=== PATIENT | male | born 1965 | race Caucasian/White ===

== ENCOUNTER 2019-09-28 12:39 | Emergency (ER) | payer SELFPAY ==
--- NOTE | 2019-09-28 13:50 | ER Document Report ---
Entered by CHICO PELAEZ SCRIBE 09/28/19 1318 Acting as scribe for:JAN DE LEON MD ED General - General Stated Complaint: TROUBLE BREATHING Time Seen by Provider: 09/28/19 13:08 Mode of Arrival: Medic Information source: Patient Notes: This 54 year old homeless diabetic male patient brought in by EMS presents to the ED today with complaints of dyspnea that occurred prior to arrival. Patient states that he is an alcoholic and that he drank two 24 oz cans of beer to "calm my nerves" at 7:00 AM. He states he drank the beer because he did not have his Zyprexa. Patient states that he got hungry, so he went to [facility] where he felt nauseous and had difficulty breathing, so EMS was called. Patient notes that EMS checked his blood sugar and it was approximately 472. Patient states that he lives in a homeless alf in [place] and he was here in [place] for detox and to fill his prescriptions (ran out x2 weeks ago) at the local [facility]. Patient notes that he was sent to [place] for detox because he was seen at the clinic in [place] x7 times already. Patient states that he was unable to refill his prescription in [place] because he was "tied up going to clinic to clinic". Patient states that he does not have a ride back to [place] because he left the facility this morning. The patient does not have a medication list. He states he takes gabapentin 800 3 times daily, metoprolol 50 twice daily, lisinopril 20 daily. He states he takes Zyprexa 10 mg twice daily. He also states he is on sliding scale regular insulin, but does not have a glucometer so he manages his insulin dosing based on taking a double dose of his prescribed glipizide. Very little else that patient states makes any more sense than this. Past Medical History - General Information source: Patient - Social History Smoking Status: Never Smoker Cigarette use (# per day): No Chew tobacco use (# tins/day): No Smoking Education Provided: No Frequency of alcohol use: Heavy Occupation: Unemployed Lives with: Homeless Family History: Reviewed & Not Pertinent Patient has suicidal ideation: No Patient has homicidal ideation: No - Past Medical History Cardiac Medical History: Reports: Hx Hypertension Endocrine Medical History: Reports: Hx Diabetes Mellitus Type 2 Psychiatric Medical History: Reports: Hx Schizophrenia Past Surgical History: Reports: None Review of Systems - Review of Systems Constitutional: No symptoms reported EENT: No symptoms reported Cardiovascular: See HPI, Dyspnea Respiratory: No symptoms reported Gastrointestinal: See HPI, Nausea. denies: Vomiting Genitourinary: No symptoms reported Male Genitourinary: No symptoms reported Musculoskeletal: No symptoms reported Skin: No symptoms reported Hematologic/Lymphatic: No symptoms reported Neurological/Psychological: No symptoms reported -: Yes All other systems reviewed and negative Physical Exam - Vital signs Interpretation: Normal - General General appearance: Alert, Other - Demanding and argumentative with registration, nurse, and physician. No ketone odor detected. In distress: None - HEENT Head: Normocephalic, Atraumatic Eyes: Normal, Other - Patient does squint a lot like he may have some visual disturbance, but he is too uncooperative to answer questions about his vision. Pupils: PERRL - Respiratory Respiratory status: No respiratory distress Chest status: Nontender Breath sounds: Normal Chest palpation: Normal - Cardiovascular Rhythm: Regular Heart sounds: Normal auscultation Murmur: No - Abdominal Inspection: Obese Distension: No distension Bowel sounds: Normal Tenderness: Nontender Organomegaly: No organomegaly - Back Back: Normal, Nontender - Extremities General upper extremity: Normal inspection General lower extremity: Normal inspection - Neurological Neuro grossly intact: Yes - Psychological Associated symptoms: Other - Argumentative, deceptive, demanding, somewhat dishonest. - Skin Skin Temperature: Warm Skin Moisture: Dry Skin Color: Normal Course - Re-evaluation Re-evalutation: 09/28/19 14:18 The patient demanded to give him various medications, but will not allow me the opportunity to confirm what medications he is really supposed to be taking. I did place several orders in the computer in order to evaluate the patient's presenting complaints, but the nurse came to me and told me he wanted his IV out and he was leaving. He is oriented, he does understand what he is doing. He has been able to manipulate the system in [place] to go to various detox facilities, and then get placed at the facility here in [place]. It appears that he probably left against advice this morning and went out and drank beer, and then went to [facility] where 911 was called. He states he has been out of his medication for over 2 weeks and blames the various facilities that he has gone from 1 to the other is the reason why he could never go get his medication filled. It appears that he is capable of handling himself and understands what he is doing. I do not see a valid reason to hold him against his will, as he does repeatedly talk about knowing what his rights are and I believe in this instance he is correct. Discharge - Discharge Clinical Impression: Elevated blood sugar, Noncompliance with medication regimen, History of alcohol abuse, Homeless single person, Personal history of schizophrenia Disposition: AGAINST MEDICAL ADVICE Scribe Attestation: 09/28/19 14:22 I personally performed the services described in the documentation, reviewed and edited the documentation which was dictated to the scribe in my presence, and it accurately records my words and actions. I personally performed the services described in the documentation, reviewed and edited the documentation which was dictated to the scribe in my presence, and it accurately records my words and actions.
== END 2019-09-28 13:40 | disposition left against medical advice (07) ==
LOC: ER 12:39
DX: E11.65 Type 2 diabetes mellitus with hyperglycemia (principal); R11.0 Nausea; R06.00 Dyspnea, unspecified; I10 Essential (primary) hypertension; Z86.59 Personal history of other mental and behavioral disorders; Z59.0 Homelessness; Z91.14 Patient's other noncompliance with medication regimen; Z53.20 Procedure and treatment not carried out because of patient's decision for unspecified reasons
CPT/HCPCS: 99284

== ENCOUNTER 2019-09-29 00:43 | Emergency (ER) | payer SELFPAY ==
[2019-09-29 00:52] VITALS: BP 181/114
== END 2019-09-29 03:50 | disposition left against medical advice (07) ==
LOC: ER 00:43
DX: Z53.21 Procedure and treatment not carried out due to patient leaving prior to being seen by health care provider (principal); I10 Essential (primary) hypertension
CPT/HCPCS: 82962

== ENCOUNTER 2019-09-29 13:17 | Emergency (ER) | payer SELFPAY ==
[2019-09-29 13:27] VITALS: BP 183/108
--- NOTE | 2019-09-29 14:02 | ER Document Report ---
ED General - General Chief Complaint: Alcohol Withdrawl Stated Complaint: ALCOHOL WITHDRAWAL Time Seen by Provider: 09/29/19 13:50 Notes: Patient is a 54-year-old alcoholic male who presents to the emergency department for possible alcohol withdrawals. Patient states that he fell asleep behind [employer], the restaurant. He states that he feels like he is going through alcohol withdrawals and wants to go home. He was brought in because somebody had called 911. He is holding an emesis bag with dark brown vomit in it, but denies any vomiting, pain, or any other symptoms. He is stating that he wants to leave the emergency department and he does not want any help. He is answering questions appropriately. Patient is homeless. TRAVEL OUTSIDE OF THE [place] IN LAST 30 DAYS: No - Related Data Allergies/Adverse Reactions: haloperidol [From Haldol] Adverse Reaction (Verified 09/29/19 01:02) Past Medical History - General Information source: Patient - Social History Smoking Status: Unknown if Ever Smoked Family History: Reviewed & Not Pertinent - Past Medical History Cardiac Medical History: Reports: Hx Hypertension Endocrine Medical History: Reports: Hx Diabetes Mellitus Type 1, Hx Diabetes Mellitus Type 2 Psychiatric Medical History: Reports: Hx Schizophrenia Review of Systems - Review of Systems Notes: REVIEW OF SYSTEMS: CONSTITUTIONAL : Denies recent illness. Denies recent unintentional weight loss. Denies fever, chills, or sweats. EENT: Denies eye, ear, throat, or mouth pain, discharge, or symptoms. Denies nasal or sinus congestion. CARDIOVASCULAR: Denies chest pain. RESPIRATORY: Denies shortness of breath, cough, congestion, difficulty breathing, or wheezing. GASTROINTESTINAL: Denies nausea, vomiting, and diarrhea. Denies abdominal pain. Denies constipation. GENITOURINARY: Denies difficulty urinating, burning, blood in urine, urgency or frequency. MUSCULOSKELETAL: Denies neck and back pain. Denies joint pain or swelling. SKIN: Denies rash, itchiness, or lesions HEMATOLOGIC : Denies easy bruising or bleeding. LYMPHATIC: Denies swollen, painful, enlarged glands. NEUROLOGICAL: Denies no numbness or tingling denies weakness. Denies headache. Denies altered mental status. Denies alteration in speech. PSYCHIATRIC: Denies stress, anxiety, alteration in sleep patterns, or depression. See HPI. All other systems reviewed and negative. Physical Exam - Vital signs Vitals: Temp Pulse Resp BP Pulse Ox 97.7 F 114 H 18 183/108 H 94 09/29/19 13:25 09/29/19 13:25 09/29/19 13:25 09/29/19 13:25 09/29/19 13:25 - Notes Notes: PHYSICAL EXAMINATION: GENERAL: Appears chronically ill, no acute distress. HEAD: Normocephalic, atraumatic. EYES: PERRL, conjunctiva normal, all extraocular movements intact, sclera nonicteric ENT: Moist mucous membranes. NECK: Supple, no noticeable swelling, redness, rash. Normal range of motion. LUNGS: Equal breath sounds bilaterally and clear to auscultation. No wheezes rales or rhonchi. CARDIOVASCULAR: S1-S2, regular rate, regular rhythm. Radial pulses 2+, normal. Hypertensive. ABDOMEN: Normoactive bowel sounds. Soft, nontender, no guarding, no rebound tenderness, and no masses palpated. EXTREMITIES: Normal strength and range of motion, no pitting or edema. No cyanosis. NEUROLOGICAL: Moves all extremities upon command. Strength 5/5 in all extremities. PSYCH: Normal mood, normal affect. SKIN: Warm, dry. No rash, lesions, ulcerations noted. Normal skin turgor. Course - Re-evaluation Re-evalutation: 09/29/19 The patient has chosen to leave the facility against medical advice. The relevant issues have been reviewed and discussed with the patient and family at the bedside. At the time of this assessment there is no indication for involuntary commitment. The patient is alert, oriented, and able to express clearly their reasoning for not wanting to remain in the emergency department for further treatment. The patient is not clinically psychotic, intoxicated, and denies and suicidal ideation. Differential or suspected diagnoses based on medical screening exam: Alcohol withdrawal, GI bleed, pancreatitis. The patient is aware of the concerning diagnoses and acknowledges understanding of the reasons for the following recommendations: He is to return to the emergency department if he has worsening symptoms. The following recommendations/services were offered and refused: Labs, monitoring, help with alcohol withdrawal, rehabilitation. The following risks were explained: , permanent disability, loss of function, Clinical impression: Patient is competent to make decisions regarding the medical that is being offered. He will leave the emergency department. Follow- up precautions were given. Verbal discharge instructions were given to the patient. They verbalized understanding. They are stable for discharge. - Vital Signs Vital signs: Temp Pulse Resp BP Pulse Ox 97.7 F 114 H 18 183/108 H 94 09/29/19 13:25 09/29/19 13:25 09/29/19 13:25 09/29/19 13:25 09/29/19 13:25 Discharge - Discharge Clinical Impression: Noncompliance with medication regimen, History of alcohol abuse, Homeless single person Condition: Stable Disposition: AGAINST MEDICAL ADVICE Additional Instructions: You were seen today in the emergency department for high blood pressure and possible alcohol withdrawals. You are wishing to leave AGAINST MEDICAL ADVICE. There is a possibility you can have worsening symptoms, , or have your condition worsen. Please return to the emergency department immediately if you continue to have symptoms. I highly suggest that you do not continue drinking and get help, but she you are not wanting that at this time.
== END 2019-09-29 14:05 | disposition left against medical advice (07) ==
LOC: ER 13:17
DX: Z91.14 Patient's other noncompliance with medication regimen (principal); F10.239 Alcohol dependence with withdrawal, unspecified; Z59.0 Homelessness; I10 Essential (primary) hypertension; E11.9 Type 2 diabetes mellitus without complications
CPT/HCPCS: 99284

== ENCOUNTER 2019-09-30 01:28 | Emergency (ER) | payer SELFPAY ==
[2019-09-30] MEDS ORDERED: NORMAL SALINE 1000 ML 1,000 ML IV ONE (02:06)
[2019-09-30] MEDS ORDERED: LISINOPRIL 10 MG TABLET PO ONE (02:07)
[2019-09-30] MEDS ORDERED: METOPROLOL TARTRATE 50 MG TABLET PO ONE ×2 (02:07→08:28)
[2019-09-30] MEDS ORDERED: PROMETHAZINE HCL INJ 25 MG/1 ML VIAL IM ONE (02:07)
--- NOTE | 2019-09-30 02:09 | ER Document Report ---
ED Substance Abuse / Acc. OD - General Chief Complaint: Alcohol Withdrawl Stated Complaint: ETOH Time Seen by Provider: 09/30/19 01:58 Notes: Patient is a 54-year-old male that comes emergency department for chief complaint of alcohol dependence and concerned about withdrawal. He also states that he is out of his blood pressure medication including metoprolol 50 mg twice a day and lisinopril 20 mg daily. He is also a type II diabetic. He states he vomited twice earlier today, he states he got so drunk he passed out behind [employer]. He states that his last drink of alcohol was 5 hours ago but he also states that he will quickly develop withdrawal symptoms if he does not drink. He states that he is hoping to get back into detox. He states he has performed this in the past but with relapses and if he does not drink he withdraws. He denies recreational drugs, smoking, or any other daily medications. He denies SI or HI. He denies fall or head injury. He denies any pain at this time. TRAVEL OUTSIDE OF THE [place] IN LAST 30 DAYS: No - Related Data Allergies/Adverse Reactions: haloperidol [From Haldol] Adverse Reaction (Verified 09/30/19 02:37) Past Medical History - General Information source: Patient - Social History Smoking Status: Current Every Day Smoker Frequency of alcohol use: Heavy Drug Abuse: Cocaine Lives with: Alone Family History: Reviewed & Not Pertinent - Past Medical History Cardiac Medical History: Reports: Hx Hypertension Endocrine Medical History: Reports: Hx Diabetes Mellitus Type 2 Psychiatric Medical History: Reports: Hx Schizophrenia - Immunizations Hx Diphtheria, Pertussis, Tetanus Vaccination: Yes Review of Systems - Review of Systems Constitutional: No symptoms reported EENT: No symptoms reported Cardiovascular: No symptoms reported Respiratory: No symptoms reported Gastrointestinal: See HPI Genitourinary: No symptoms reported Male Genitourinary: No symptoms reported Musculoskeletal: No symptoms reported Skin: No symptoms reported Hematologic/Lymphatic: No symptoms reported Neurological/Psychological: See HPI Physical Exam - Vital signs Vitals: Pulse Ox 96 09/30/19 02:25 - Notes Notes: GENERAL: Alert, interacts well. Somewhat disheveled. No acute distress. Smells of alcohol but is not slurring his words HEAD: Normocephalic, atraumatic. EYES: Pupils equal, round, and reactive to light. Extraocular movements intact. ENT: Oral mucosa dry, tongue midline. Oropharynx unremarkable. Airway patent. LUNGS: Clear to auscultation bilaterally, no wheezes, rales, or rhonchi. No respiratory distress. HEART: Borderline tachycardic, normal rhythm. No murmur ABDOMEN: Soft, non-tender. Non-distended. Bowel sounds present in all 4 quadran ts. EXTREMITIES: Moves all 4 extremities spontaneously. No edema, normal radial and dorsalis pedis pulses bilaterally. No cyanosis. BACK: no cervical, thoracic, lumbar midline tenderness. No saddle anesthesia, normal distal neurovascular exam. Moves all extremities in full range of motion. NEUROLOGICAL: Alert and oriented x3. Normal speech. Cranial nerves II through XII grossly intact. PSYCH: Normal affect, normal mood. SKIN: Warm, dry, normal turgor. No rashes or lesions noted. Course - Re-evaluation Re-evalutation: Patient is cooperative, alert, denies SI or HI, states he just wants help detoxing. CBC nonspecific, chemistry unremarkable other than some hyperglycemia which is expected based on him not taking recent diabetes medications and having a history of type 2 diabetes. Bicarb 21, a few ketones in the urine, giving IV fluids. Drug screen shows multiple controlled substances despite patient denying this. Alcohol is actually not very elevated at 104. After blood pressure medications blood pressure improved, tachycardia resolved, on reevaluation patient is not tachycardic, tremulous, and he is cooperative. He has not had any vomiting here. Patient is medically cleared pending mental health team evaluation and potential placement for detox. Discussed with patient, he states appreciation and agreement. - Vital Signs Vital signs: Temp Pulse Resp BP Pulse Ox 97.8 F 19 147/94 H 96 09/30/19 02:26 09/30/19 06:01 09/30/19 06:01 09/30/19 06:01 - Laboratory Result Diagrams: 09/30/19 02:50 09/30/19 02:50 Laboratory results interpreted by me: 09/30/19 09/30/19 09/30/19 02:30 02:50 02:50 WBC 11.4 H RDW 15.4 H Carbon Dioxide 21 L Glucose 231 H Urine Protein 100 H Urine Glucose (UA) >=500 H Urine Ketones 20 H Salicylates 1.7 L Acetaminophen < 10 L - EKG Interpretation by Me Additional EKG results interpreted by me: EKG shows sinus tachycardia at a rate of 102, left anterior fascicular block, left axis deviation. No T wave inversions or ST segment changes in consecutive leads. QTC 469. Discharge - Discharge Clinical Impression: Substance abuse, Has run out of medications Alcohol dependence Qualifiers: Substance use status: unspecified alcohol-induced disorder Qualified Code(s): F10.29 - Alcohol dependence with unspecified alcohol-induced disorder Condition: Stable Disposition: PSYCH HOSP/UNIT
[2019-09-30 02:56] LABS: APPEARANCE,URINE CLEAR; BILIRUBIN,URINE NEGATIVE (NEGATIVE); COLOR,URINE STRAW; GLUCOSE, URINE >=500 mg/dL (NEGATIVE); KETONES,URINE 20 mg/dL (NEGATIVE); LEUKOCYTE ESTERASE,URINE NEGATIVE (NEGATIVE); NITRITE,URINE NEGATIVE (NEGATIVE); PROTEIN,URINE 100 mg/dL (NEGATIVE); URINE SPECIFIC GRAVITY 1.012; UROBILINOGEN,URINE NEGATIVE mg/dL (<2.0)
[2019-09-30 03:06] LABS: ABSOLUTE BASOPHILS # (AUTO) 0.1 10^3/uL (0.0-0.2); ABSOLUTE EOSINOPHILS # (AUTO) 0.1 10^3/uL (0.0-0.6); ABSOLUTE LYMPHOCYTES (AUTO) 3.2 10^3/uL (0.5-4.7); ABSOLUTE MONOCYTES (AUTO) 0.9 10^3/uL (0.1-1.4); ABSOLUTE NEUT (AUTO) 7.1 10^3/uL (1.7-8.2); BASOPHILS % (AUTO) 0.7 % (0-2); EOSINOPHILS % (AUTO) 0.9 % (0-6); HEMATOCRIT 45.3 % (37.9-51.0); HEMOGLOBIN 15.3 g/dL (13.5-17.0); MEAN CORPUSCULAR HEMOGLOBIN 30.4 pg (27.0-33.4); MEAN CORPUSCULAR HGB CONC 33.9 g/dL (32.0-36.0); MEAN CORPUSCULAR VOLUME 90 fl (80-97); MONOCYTES % (AUTO) 8.2 % (3-13); PLATELET COUNT 306 10^3/uL (150-450); RED BLOOD COUNT 5.05 10^6/uL (4.35-5.55); RED CELL DISTRIBUTION WIDTH 15.4 % (11.5-14.0); SEGMENTED NEUTROPHILS % (AUTO) 62.2 % (42-78); TOTAL CELLS COUNTED % (AUTO) 100 %; WHITE BLOOD COUNT 11.4 10^3/uL (4.0-10.5)
[2019-09-30 03:12] LABS: ALBUMIN 4.5 g/dL (3.5-5.0); ALCOHOL 104 mg/dL (NONE DETECTED); ALKALINE PHOSPHATASE 103 U/L (38-126); ANION GAP 17 (5-19); ASPARTATE AMINO TRANSFERASE 24 U/L (17-59); BILIRUBIN,DIRECT 0.3 mg/dL (0.0-0.4); BILIRUBIN,TOTAL 0.3 mg/dL (0.2-1.3); BLOOD UREA NITROGEN 11 mg/dL (7-20); CALCIUM 9.6 mg/dL (8.4-10.2); CARBON DIOXIDE 21 mmol/L (22-30); CHLORIDE 102 mmol/L (98-107); GLUCOSE 231 mg/dL (75-110); POTASSIUM 4.5 mmol/L (3.6-5.0); SALICYLATE 1.7 mg/dL (2.0-20.0)
[2019-09-30 03:15] LABS: URINE AMPHETAMINES SCREEN NEGATIVE; URINE MARIJUANA (THC) SCREEN NEGATIVE; URINE METHADONE SCREEN NEGATIVE
[2019-09-30 03:16] LABS: ACETAMINOPHEN < 10 ug/mL (10-30)
[2019-09-30 03:16] LABS: URINE BARBITURATES SCREEN UNCONFIRMED POSITIVE; URINE BENZODIAZEPINES SCREEN UNCONFIRMED POSITIVE; URINE COCAINE SCREEN UNCONFIRMED POSITIVE
[2019-09-30 03:18] LABS: URINE PHENCYCLIDINE SCREEN NEGATIVE
[2019-09-30] MEDS ORDERED: DIAZEPAM 5 MG TABLET PO ONE (07:36)
--- NOTE | 2019-09-30 08:14 | EKG REPORT ---
SEVERITY:- ABNORMAL ECG - SINUS TACHYCARDIA LEFT ANTERIOR FASCICULAR BLOCK BORDERLINE R WAVE PROGRESSION, ANTERIOR LEADS : Confirmed by: Jonn Haider MD 30-Sep-2019 08:13:48
--- NOTE | 2019-09-30 09:25 | PSYCHOLOGICAL NOTE ---
Psych Note - Psych Note Date seen by psych provider: 09/30/19 Time seen by psych provider: 07:50 Psych Note: Reason for consult: ETOH/Polysubstance Use Patient is a 54 year old male who presents to ED via EMS for concerns of ETOH withdrawal. Patient has an extensive history of ETOH abuse and polysubstance use. Patient apologized to clinician for current presentation and stated he "was partying with a new friend." Patient states that his ETOH and polysubstance use has "been an attempt to escape reality." Patient's urine drug screen is positive for barbiturates, benzos, ETOH 104, and cocaine. Patient is a experiencing homelessness. Patient was presented with the option to receive treatment at [facility]; patient agreed for referral to be sent. Patient is alert and oriented to person, place, time and circumstance. Mood is normal with congruent affect. Patient denies suicidal and homicidal ideations. Delusions are absent and behavior is congruent with an intact reality based presentation (i.e.: organized and linear through processes). There is no o bserved behavior that suggests patient is responding to internal stimuli. Patient denies current auditory and visual hallucinations. Eye contact is good. Conversational speech is within normal rate, tone, and prosody. Intellectual ability appears to be within average range. Attention and concentration are good. Insight, judgment and impulse control are currently poor. Medication recommendations per [facility] contracted psychiatrist Dr. Sintia HAQ is as follows: NONE Impression/Plan: Patient is cleared fro acute psyciatric services. Patient denies suicidal and homicidal ideations. There is no observed behavior that suggests patient is responding to internal stimuli. Patient denies current auditory and visual hallucinations. Patient has an extensive ETOH and polysubstance use. Clinician spoke with Brittani at [facility] who stated there is bed availability. Plan is for patient to voluntarily present to [facility] for treatment. Dr. Mckeon was consulted on the care and management of this patient; attending physician is in agreement with recommendations and disposition.
--- NOTE | 2019-09-30 09:51 | ER Document Report ---
Doctor's Note Notes: 09/30/19 09:50 Patient resting comfortably on stretcher. Patient is alert and oriented x4. Patient to be transported to [place] around 10 AM this morning. A staff member from [facility] to come to the emergency department and escort the patient. Patient verbalized understanding. Patient reports that he is hungry. Patient not sh owing any signs of withdrawal at this time. Will order the patient a meal tray. Patient was given his doses of blood pressure medication and is not due for another dose until 2 PM this afternoon.
[2019-09-30 10:22] VITALS: BP 148/107
== END 2019-09-30 10:23 | disposition home or self-care (01) ==
LOC: ER 01:28
DX: F10.29 Alcohol dependence with unspecified alcohol-induced disorder (principal); Y90.5 Blood alcohol level of 100-119 mg/100 ml; R11.10 Vomiting, unspecified; F14.10 Cocaine abuse, uncomplicated; I10 Essential (primary) hypertension; E11.65 Type 2 diabetes mellitus with hyperglycemia; R00.0 Tachycardia, unspecified; Z59.0 Homelessness
CPT/HCPCS: 93005; 99285; 96372; 96360; 36415; 80307 ×4; 83690; 85025; 80053; 81001; 93010; J2550; J7030